=== PATIENT | male | born 1965 | race Caucasian/White ===

== ENCOUNTER → 2017-06-19 | Outpatient (CLI) | payer BC ==
[~2017-06-19] MED LIST: AMLO-110 PO; ATEN-175 PO; ATOR10TA82 PO; FLUT0.15 INTRAD; HYDR-5688 PO; IBUP-1050 PO; LISI-788 PO; LORA10TA51 PO; OMEG10007 PO
[2017-06-19 15:34] LABS: BASO % 0.6 %; BASO ABS # 0.04 K/uL (0-0.2); EOS % 4.7 %; EOS ABS # 0.33 K/uL (0-0.5); HEMATOCRIT 43.7 % (42-52); HEMOGLOBIN 15.5 g/dL (14.0-18.0); IG# 0.03 K/uL (0.00-0.02); LYMPH % 20.3 %; LYMPH ABS # 1.44 K/uL (1.2-3.4); MEAN CELL VOLUME 88.6 fL (80-100); MEAN CORPUSCULAR HEMOGLOBIN 31.4 pg (25-34); MEAN CORPUSCULAR HGB CONC 35.5 g/dl (32-36); MEAN PLATELET VOLUME 11.2 fL (7.4-10.4); MONO % 12.4 %; MONO ABS # 0.88 K/uL (0.11-0.59); NEUT % 61.6 %; NEUT ABS # 4.37 K/uL (1.4-6.5); PLATELET COUNT 180 K/uL (130-400); RED CELL DISTRIBUTION WIDTH CV 12.7 % (11.5-14.5); RED CELL DISTRIBUTION WIDTH SD 40.7 fL (36.4-46.3); WHITE BLOOD COUNT 7.09 K/uL (4.8-10.8)
== END | disposition home or self-care (01) ==
LOC: C.LAB 14:08
PROVIDERS: ATTEND Physician Assistant
DX: M17.11 Unilateral primary osteoarthritis, right knee (principal)

== ENCOUNTER 2017-06-29 04:49 | Inpatient (IN) | payer BC ==
--- NOTE | 2017-06-26 11:12 | DIAGNOSTIC IMAGING REPORT ---
CHEST 2 VIEWS ROUTINE CLINICAL HISTORY: PRE OP TESTING preoperative COMPARISON STUDY: No previous studies for comparison. FINDINGS: The bones soft tissues and hemidiaphragms are normal. The cardiomediastinal silhouette is normal. The lungs are clear. The pulmonary vasculature is normal. Small calcified granuloma of the substernal region. IMPRESSION: Negative chest. The above report was generated using voice recognition software. It may contain grammatical, syntax or spelling errors. Electronically signed by: Dada Hoang M.D. 06/26/2017 11:11 AM Dictated Date/Time: 06/26/2017 11:10 AM
[2017-06-26 12:57] LABS: HEMOGLOBIN A1C 5.1 % (4.5-5.6)
[2017-06-26 14:08] LABS: ALBUMIN 4.4 gm/dl (3.4-5.0); BLOOD UREA NITROGEN 21 mg/dl (7-18); CALCIUM 9.3 mg/dl (8.5-10.1); CARBON DIOXIDE 24 mmol/L (21-32); CREATININE 0.94 mg/dl (0.60-1.40); GLUCOSE 98 mg/dl (70-99); POTASSIUM 3.8 mmol/L (3.5-5.1); SODIUM 136 mmol/L (136-145)
[2017-06-27 11:52] VITALS: Ht 182.9 cm; Wt 118.2 kg
--- NOTE | 2017-06-28 21:41 | HISTORY & PHYSICAL EXAMINATION ---
DATE OF ADMISSION: CHIEF COMPLAINT: Chronic right knee pain. HISTORY OF PRESENT ILLNESS: This is a 52-year-old male patient of Dr. Malik'ruby complaining of chronic right knee pain, longstanding, now progressively getting worse. The patient has been diagnosed with end-stage osteoarthritis per clinical and radiographic exams. Patient has failed conservative treatment including anti-inflammatories, narcotics, intra-articular injections, and the use of a walker. Patient has increased pain with weightbearing activities and his pain does interfere with his activities of daily living. PAST MEDICAL HISTORY: Hypertension; hypercholesterolemia; history of palpitations, unspecified; osteoarthritis; sciatica; obesity. SOCIAL HISTORY: Lifelong smoker, quit in 2013. He is a 14 drink per week drinker. FAMILY HISTORY: Noncontributory. REVIEW OF SYSTEMS: Chronic right knee pain, otherwise denies any shortness of breath, chest pain, nausea, vomiting, or any other joint complaints. PAST SURGICAL HISTORY: Back surgery, bilateral knee surgeries, nasal surgery, hernia surgery, and bilateral carpal tunnel surgeries. MEDICATIONS: 1. Lisinopril 20 mg/hydrochlorothiazide 25 mg daily. 2. Atenolol 100 mg daily. 3. Atorvastatin 10 mg daily. 4. Amlodipine powder daily. 5. Loratadine 10 mg daily. 6. [place] as needed. ALLERGIES: INCLUDE PENICILLIN. PHYSICAL EXAMINATION: GENERAL: Well-developed, well-nourished 52-year-old male in no acute distress. He is alert and oriented x3 and pleasant. HEENT: He is normocephalic, atraumatic. Extraocular motions are intact. Pupils are equal and reactive to light. HEART: Regular rate and rhythm, no murmurs are appreciated. LUNGS: Clear. ABDOMEN: Soft and nontender. Bowel sounds are present. EXTREMITIES: Right knee reveals a varus deformity. He has a limited range of motion of 0-125 degrees. Patient has medial joint line tenderness. He has 5/5 strength. NEUROLOGICAL: Neurovascularly he is intact in his right lower extremity. DIAGNOSES: Right knee end-stage osteoarthritis; hypertension; hypercholesterolemia; history of palpitations, unspecified; osteoarthritis; sciatica; obesity. PLAN: Patient was advised of his diagnosis. Indications, risks, benefits, postop course have all been reviewed. Patient wished to proceed with a right total knee arthroplasty. Necessary consent forms, preoperative testing, and clearances will be obtained.
[~2017-06-29] VITALS: Ht 182.9 cm; Wt 118.2 kg
[2017-06-29] VITALS (10 sets, daily range): BP systolic 132–149; BP diastolic 72–95; PULSE 60–77; TEMP 36.7–37.2; O2SAT 94–97
[2017-06-29] MEDS ORDERED: GABAPENTIN 900 MG PO SCH (06:00)
[2017-06-29] MEDS ORDERED: METOCLOPRAMIDE HCL 10 MG TAB PO SCH (06:00)
[2017-06-29] MEDS ORDERED: CeleBREX 200 MG CAP PO SCH (06:00)
[2017-06-29] MEDS ORDERED: FAMOTIDINE 20 MG TAB PO SCH (06:00)
[2017-06-29] MEDS ORDERED: VANCOMYCIN IV 1,750 MG in SODIUM CHLORIDE 0.9% 500ML 500 ML IV SCH ×2 (06:00→18:00)
[2017-06-29] MEDS ORDERED: ROPIVACAINE 5MG/ML 30 ML 150 MG, BUPIVACAINE 0.5% MPF INJ 30 ML, EpINEphrine HCL INJ 0.... INFIL SCH ×8 (06:00)
[2017-06-29] MEDS ORDERED: ACETAMINOPHEN 500 MG TAB PO SCH (06:00)
[2017-06-29] MEDS ORDERED: DEXAMETHASONE 4 MG TAB PO SCH (06:00)
[2017-06-29] MEDS ORDERED: VANCOMYCIN 1GM ED/ASU OMNICELL 270 ML IV SCH (06:00)
[2017-06-29] MEDS ORDERED: LACTATED RINGER'S 1000ML 500 ML IV SCH (06:00)
[2017-06-29] MEDS ORDERED: BUPIVACAINE 0.5 % 5 MG/1 ML PF 10ML VIAL ONE (06:25)
[2017-06-29] MEDS ORDERED: ROPIVACAINE 0.5% 5 MG/ML 30 ML VIAL ONE (06:26)
[2017-06-29] MEDS ORDERED: PROPOFOL IV EMULSION 10 MG/ML 20 ML VIAL IV ONE ×3 (06:31→09:12)
[2017-06-29] MEDS ORDERED: LIDOCAINE HCL 2% 2 ML VIAL (20MG/ML) ONE (06:31)
[2017-06-29] MEDS ORDERED: MIDAZOLAM HCL 1 MG/ML 2ML VIAL ONE ×3 (06:31→08:20)
[2017-06-29 06:32] LABS: HEMATOCRIT 42.6 % (42-52); HEMOGLOBIN 15.1 g/dL (14.0-18.0); MEAN CELL VOLUME 88.4 fL (80-100); MEAN CORPUSCULAR HEMOGLOBIN 31.3 pg (25-34); MEAN PLATELET VOLUME 10.5 fL (7.4-10.4); PLATELET COUNT 154 K/uL (130-400); RED CELL DISTRIBUTION WIDTH CV 12.6 % (11.5-14.5); RED CELL DISTRIBUTION WIDTH SD 40.2 fL (36.4-46.3); WHITE BLOOD COUNT 6.83 K/uL (4.8-10.8)
[2017-06-29 06:51] LABS: MEAN CORPUSCULAR HGB CONC 35.4 g/dl (32-36)
[2017-06-29] MEDS ORDERED: BACITRACIN 50000 UNIT VIAL ONE (06:51)
[2017-06-29] MEDS ORDERED: POVIDONE-IODINE OP SOLN 30 ML BTL ONE (06:51)
[2017-06-29] MEDS ORDERED: ORTHO JOINT ANESTHETIC ONE (06:51)
[2017-06-29] MEDS: TRANEXAMIC ACID INJ 1,000 MG x 2 Bags IV SCH ×4 (07:03→11:24)
--- NOTE | 2017-06-29 07:10 | History & Physical Bridge Note ---
H&P Re-Evaluation Bridge Note: I have examined the patient, reviewed the History & Physical and in the interval since the performance of the History & Physical I have noted the following changes of clinical significance: No changes noted
[2017-06-29] MEDS ORDERED: FENTANYL CITRATE INJ 50 MCG/1 ML 2 ML VIAL ONE (07:12)
[2017-06-29] MEDS ORDERED: HYDROmorphone INJ 0.5 MG/0.5 ML SYR IV PRN (07:45)
[2017-06-29] MEDS ORDERED: ATROPINE SULFATE 0.1 MG/ML 5ML SYR IV PRN (07:45)
[2017-06-29] MEDS ORDERED: ONDANSETRON INJ 2 MG/ML 2 ML VIAL IV PRN ×2 (07:45→10:00)
[2017-06-29] MEDS ORDERED: PHENYLEPHRINE 100MCG/ML 5ML SYR IV PRN (07:45)
[2017-06-29] MEDS ORDERED: EpHEDrine SULFATE INJ 50 MG/ML AMP IV PRN (07:45)
--- NOTE | 2017-06-29 09:57 | [facility] Post Operative Brief Note ---
Immediate Operative Summary Operative Date Jun 29, 2017. Pre-Operative Diagnosis Right Knee End-Stage Osteoarthritis Post-Operative Diagnosis Right Knee End-Stage Osteoarthritis,bipartite patella Procedure(s) Performed Right Total Knee Arthroplasty with Excision Bipartite Patella and lateral release Surgeon Dr. Malik Candle Extrusion Machine Operator Surgeon(s) DORITA Pemberton Estimated Blood Loss 10 ml Findings Consistent with Post-Op Diagnosis Specimens A. Right Knee Bone and Tissue Drains 2 hemovac Anesthesia Type MAC Spinal Regional Complication(s) none Disposition Disposition: Recovery Room / PACU
[2017-06-29] MEDS ORDERED: VANCOMYCIN CONSULT ACTIVE PRN (10:00)
[2017-06-29] MEDS ORDERED: MoRPHine SULFATE 2 MG/ML CARP IV PRN (10:00)
[2017-06-29] MEDS ORDERED: ZOLPIDEM TARTRATE 5 MG TAB PO PRN (10:00)
[2017-06-29] MEDS ORDERED: SOD PHOSPHATE/SOD BIPHOSPHATE ENEMA 132 ML BTL PR PRN (10:00)
[2017-06-29] MEDS ORDERED: MAGNESIUM HYDROXIDE SUSP 30 ML UDC PO PRN (10:00)
[2017-06-29] MEDS ORDERED: METOCLOPRAMIDE HCL INJ 5 MG/ML 2 ML VIAL IV PRN (10:00)
[2017-06-29] MEDS ORDERED: BISACODYL 10 MG SUPP PR PRN (10:00)
--- NOTE | 2017-06-29 10:17 | [facility] Operative Report ---
Operative Report Operative Date Jun 29, 2017. Pre-Operative Diagnosis Right Knee End-Stage Osteoarthritis Post-Operative Diagnosis Same, bipartite patella Procedure(s) Performed Right total knee replacement excision bipartite patella with lateral release Surgeon Dr. Malik Emergency Vehicle Operations Instructor Surgeon(s) DORITA Pemberton Estimated Blood Loss 10 ml Findings Severe tricompartmental osteoarthritis varus knee medial subluxation bone loss medial compartment chronic intra-cruciate ligament tear bipartite patella Specimens A. Right Knee Bone and Tissue Drains 2 hemovac Anesthesia Spinal regional block sedation orthomix Complication(s) None Disposition Recovery Room / PACU Indications 52-year-old male extensive conservative management failed steroid and Viscosupplementation injections and bracing Description of Procedure The patient was taken to the operating room and anesthetized under regional block and spinal. Patient was placed supine on the the operating table. A pneumatic tourniquet was placed about the right upper thigh. The knee exam demonstrated subluxation femur on tibia no pseudo-laxity, some laxity of the LCL , positive Tin exam, [id number] crepitation, 0-125 range of motion. The involved leg was elevated exsanguinated with Esmarch bandage and the pneumatic tourniquet was raised to 325 millimeters mercury. A longitudinal incision was made across the anterior knee. Skin flaps were elevated. An incision was made into the medial retinaculum and extended up into the mid third of the quadriceps tendon and extended down to the tibial tubercle. Intra-articular findings demonstrated severe tricompartmental osteoarthritis with bone loss in the medial femoral condyle and tibia, varus knee, absent ACL. The knee was exposed by excising the posterior cruciate ligament and menisci. The infrapatellar fat pad was resected. The fat pad over the anterior femur at the upper aspect of the articular surface was resected for placement of the component in that area. A subperiosteal peel lateral release was performed around the patella. It was noted that patient had a bipartite patella. The [employer] journey 2.0 total knee arthroplasty system was utilized for the procedure. The drill hole for the intramedullary cele was made and cele was placed and the distal femoral cutting guide was pinned in position. The distal femoral cut was made. I had to take +2 more off to make appropriate resection. The femur was sized for a size 8 component. The drill holes were placed in 3 of external rotation to match epicondylar axis. The size 8, 5 in 1 cutting block was placed. The anterior posterior and chamfer cuts were made. The knee was extended and a free hand cut technique was performed to the patella. We encountered the bipartite patella which was shelled out from the quadriceps tendon subperiosteally. The patella with was measured and the width was reproduced using a 41 mm patella component. 3 drill holes are made for the patella component pegs. The tibia was then subluxed. The external tibial cutting guide was pinned in position and the proximal tibial cut was made with the oscillating saw. The size 8 tibial trial was externally rotated in line with the tibial tubercle and pinned in position. The punch for the stem was used. The femoral trial was inserted and centered the notch cutting devices were used and the collet was placed. Tibial trials were used for the insert. I had to balance the knee using a lamina recessing machine operator pie crusting the MCL and also doing posterior medial release off the tibia. The size 13 trial gave balanced ligaments through full range of motion. Patella tracking was assessed with range of motion. The patella tracked slightly laterally with some liftoff still so a formal lateral release was performed and the patella tracks centrally. The trials were removed. The Orthomix anesthetic cocktail was injected per protocol. The cut bone surfaces and soft tissue were copiously irrigated with antibiotic solution with bacitracin. The final components were cemented with Simplex cement. The final components were 8 Oxinium posterior stabilized Mo[employer]hew 2.0 femoral component, 8 primary tibial baseplate, high flex 13 mm posterior stabilized polyethylene insert for tibia, 41 mm dome patella. While the cement cured the Betadine soak was used per protocol. When the cement cured the knee was copiously irrigated with pulsatile lavage antibiotic solution with bacitracin. 2 drains were brought out laterally connected to Hemovac. The quadriceps tendon and medial retinaculum were closed with interrupted [id number] #1 Vicryl sutures. The knee was taken through full range of motion and repair was secure. The subcutaneous tissues were closed with 2-0 Vicryl sutures. The skin was closed with avril. A Silverlon sterile dressing was applied. The tourniquet was let down and the patient had good capillary refill to the extremity. The patient tolerated the procedure well. My physician dental chairside assistant Dada KEVIN assisted in the procedure including prepping draping leg positioning soft tissue retraction instrument management and assisted in the closure ,dressings application and will participate in postoperative care the patient. I attest to the content of the Intraoperative Record and any orders documented therein. Any exceptions are noted below.
--- NOTE | 2017-06-29 10:21 | DIAGNOSTIC IMAGING REPORT ---
R KNEE 1 OR 2 VIEWS ROUTINE CLINICAL HISTORY: Osteoarthritis. Postoperative study. COMPARISON: None. DISCUSSION: There are postsurgical changes of a total right knee arthroplasty and patellar resurfacing. The femoral and tibial components appear well seated. Overlying skin avril and surgical drains are evident. There is air within soft tissues consistent with recent surgery. IMPRESSION: Postsurgical changes of a total right knee arthroplasty. Electronically signed by: Jessee Medrano M.D. 06/29/2017 10:20 AM Dictated Date/Time: 06/29/2017 10:19 AM
--- NOTE | 2017-06-29 10:27 | Anesthesiology Progress Note ---
Anesthesia Post Op Note Date & Time Jun 29, 2017 at 10:27 Vital Signs Pain Intensity: 0 Vital Signs Past 12 Hours Date Time Temp Pulse Resp B/P (MAP) Pulse Ox O2 Delivery O2 Flow Rate FiO2 06/29/17 10:15 70 14 106/79 96 Nasal Cannula 2 06/29/17 10:05 67 18 110/71 93 Nasal Cannula 2 06/29/17 09:59 36.7 68 16 104/63 97 Nasal Cannula 2 06/29/17 06:10 37.2 63 16 149/91 95 Room Air Notes Mental Status: alert / awake / arousable, participated in evaluation Pt Amnestic to Procedure: Yes Nausea / Vomiting: adequately controlled Pain: adequately controlled Airway Patency, RR, SpO2: stable & adequate BP & HR: stable & adequate Hydration State: stable & adequate Anesthetic Complications: no major complications apparent
[2017-06-29] MEDS ORDERED: MoRPHine SULFATE 4 MG/ML 1 ML CARP\\VIAL IV PRN (11:15)
[2017-06-29] MEDS: D5W AND 1/2NSS + 20MEQ KCL 1,000 ML IV SCH ×2 (11:52→23:34)
[2017-06-29] MEDS ORDERED: GABAPENTIN 600 MG TAB PO SCH (12:15)
[2017-06-29] MEDS ORDERED: LORAZEPAM 2 MG/ML 1 ML VIAL IV PRN (12:15)
--- NOTE | 2017-06-29 12:20 | Medical Consult ---
Consultation Date of Consultation: Jun 29, 2017. Attending Physician: Bud Malik M.D. Reason for Consultation: Post-op medical management History of Present Illness Patient is a 52yo M with a PMH of HTN, HLD, OA, sciatic and heavy alcohol use who is POD #0 s/p R TKA by Dr. Malik. Patient is doing well post-operatively. States that knee pain is a 0/10. Denies any fever, chills, lightheadedness, headache, visual changes, sore throat, CP, SOB, abdominal pain, nausea, vomiting , dysuria or LE swelling. Follows with DARIANA Olmedo in [place] for primary care. States that he has been drinking heavily for the past 8 months due to stress from work. Endorses 3-5 mixed drinks daily. Experiences tremors and agitation if he does not drink by 4pm. Denies h/o seizures. Is interested in decreasing his intake overall. Past Medical/Surgical History Medical Problems: (1) HLD (hyperlipidemia) Status: Chronic (2) HTN (hypertension) Status: Chronic (3) Right knee DJD Status: Chronic (4) Sciatica Status: Chronic Surgical Problems: (1) H/O arthroscopic knee surgery Status: Resolved (2) H/O hernia repair Status: Resolved (3) H/O lumbar discectomy Status: Resolved (4) S/P carpal tunnel release Status: Resolved (5) S/P sinus surgery Status: Resolved Social History Problems: (1) Heavy alcohol use Status: Chronic Family History Diabetes mellitus Hypertension Social History Smoking Status: Former Smoker Alcohol Use: heavy Housing Status: lives alone Occupation Status: employed Allergies Coded Allergies: Penicillins (Verified Allergy, Unknown, A CHILD UNKNOWN, 06/29/17) Home Medications Reported Home Medications Medications Dose Route/Sig Max Daily Dose Days Date Category Dose Instructions Flonase Allergy Relief (Fluticasone Propionate (Nasal)) 50 Mcg/Act Spr 2 Sprays INTRAD QAM 06/27/17 Reported [place]-3 (Fish Oil) 1 Ea Cap 2 Cap PO QAM 06/27/17 Reported Advil (Ibuprofen) 200 Mg Tab 800 Mg PO TID PRN 06/27/17 Reported Sherrill 5MG/325MG (Acetaminophen/Hydrocodone Bitart) Tab 1 Tablet PO Q4-6H 06/27/17 Reported PRN PAIN Claritin (Loratadine) 10 Mg Tab 10 Mg PO QAM 06/27/17 Reported Norvasc (Amlodipine Besylate) 5 Mg Tab 5 Mg PO QAM 06/27/17 Reported Lipitor (Atorvastatin Calcium) 10 Mg Tab 10 Mg PO QAM 06/27/17 Reported Tenormin (Atenolol) 100 Mg Tab 100 Mg PO QAM 06/27/17 Reported Zestoretic 20MG/25MG (HCTZ/Lisinopril) Tab 1 Tab PO QAM 06/27/17 Reported Current Inpatient Medications Current Inpatient Medications Medications (Trade) Dose Ordered Sig/Eva Route Start Time Stop Time Status Last Admin Dose Admin Acetaminophen (Tylenol Tab) 1,000 mg PREOP PO 06/29/17 06:00 06/29/17 18:00 06/29/17 06:07 1,000 MG Celecoxib (CeleBREX CAP) 200 mg PREOP PO 06/29/17 06:00 06/29/17 18:00 06/29/17 06:08 200 MG Dexamethasone (Decadron Tab) 8 mg PREOP PO 06/29/17 06:00 06/29/17 18:00 06/29/17 06:08 8 MG Famotidine (Pepcid Tab) 20 mg PREOP PO 06/29/17 06:00 06/29/17 18:00 06/29/17 06:08 20 MG Gabapentin (Neurontin Cap) 900 mg PREOP PO 06/29/17 06:00 06/29/17 18:00 06/29/17 06:07 900 MG Metoclopramide HCl (Reglan Tab) 10 mg PREOP PO 06/29/17 06:00 06/29/17 18:00 06/29/17 06:07 10 MG Vancomycin HCl 1750 mg/Sodium Chloride 535 ml @ 200 mls/hr PREOP IV 06/29/17 06:00 06/30/17 05:59 06/29/17 05:56 200 MLS/HR Hydromorphone HCl (Dilaudid Inj) 0.5 mg Q5M PRN IV 06/29/17 07:45 06/29/17 12:45 Ondansetron HCl (Zofran Inj) 4 mg ONE PRN IV 06/29/17 07:45 06/29/17 12:45 Ephedrine Sulfate (EpHEDrine SULFATE INJ) 5 mg Q5M PRN IV 06/29/17 07:45 06/29/17 12:45 Atropine Sulfate (Atropine Sulfate 0.1mg/ml Inj) 0.5 mg Q1M PRN IV 06/29/17 07:45 06/29/17 12:45 Phenylephrine HCl (Shane-Synephrine 500MCG/5ML Syr) 100 mcg Q5M PRN IV 06/29/17 07:45 06/29/17 12:45 Amlodipine Besylate (Norvasc Tab) 5 mg QAM PO 06/30/17 09:00 07/30/17 08:59 Atenolol (Tenormin Tab) 100 mg QAM PO 06/30/17 09:00 07/30/17 08:59 Atorvastatin Calcium (Lipitor Tab) 10 mg QAM PO 06/30/17 09:00 07/30/17 08:59 Fluticasone Propionate (Flonase Nasal Graham) 2 sprays QAM NA 06/30/17 09:00 07/30/17 08:59 HCTZ/Lisinopril (Prinzide 20-25MG Tab) 1 tab QAM PO 06/30/17 09:00 07/30/17 08:59 Loratadine (Claritin Tab) 10 mg QAM PO 06/30/17 09:00 07/30/17 08:59 Potassium Chloride/Dextrose/ Sod Cl 1,000 ml @ 100 mls/hr Q10H IV 06/29/17 11:00 06/30/17 09:56 06/29/17 11:52 100 MLS/HR Vancomycin HCl 1750 mg/Sodium Chloride 535 ml @ 200 mls/hr TODAY@1800 IV 06/29/17 18:00 06/29/17 20:41 Celecoxib (CeleBREX CAP) 200 mg BID PO 06/29/17 21:00 07/29/17 20:59 Oxycodone HCl (Roxicodone Immediate Rel Tab) 1 TABLET FOR PAIN RATING... Q4H PRN PO 06/29/17 10:00 07/13/17 09:59 Acetaminophen (Tylenol Tab) 1,000 mg Q8H PO 06/29/17 14:00 07/29/17 13:59 Magnesium Hydroxide (Milk Of Magnesia Susp) 30 ml Q6H PRN PO 06/29/17 10:00 07/29/17 09:59 Bisacodyl (Dulcolax Supp) 10 mg DAILY PRN CO 06/29/17 10:00 07/29/17 09:59 Sodium Biphosphate/ Sodium Phosphate (Fleet Enema) 132 ml DAILY PRN CO 06/29/17 10:00 07/29/17 09:59 Docusate Sodium (coLACE CAP) 100 mg BID PO 06/29/17 21:00 07/29/17 20:59 Diphenhydramine HCl (Benadryl Cap) 25 mg Q8H PRN PO 06/29/17 10:00 07/29/17 09:59 Zolpidem Tartrate (Ambien Tab) 5 mg HSZ PRN PO 06/29/17 10:00 07/29/17 09:59 Multivitamins (Multivitamin Tab) 1 tab QAM PO 06/30/17 09:00 07/30/17 08:59 Ondansetron HCl (Zofran Inj) 4 mg Q6H PRN IV 06/29/17 10:00 07/29/17 09:59 Metoclopramide HCl (Reglan Inj) 10 mg Q6H PRN IV 06/29/17 10:00 07/29/17 09:59 Pantoprazole Sodium (Protonix Tab) 40 mg QAM PO 06/30/17 09:00 07/04/17 08:59 Rivaroxaban (Xarelto Tab) 10 mg Q24H PO 06/30/17 09:00 07/12/17 08:59 Morphine Sulfate (MoRPHine SULFATE INJ) 2 mg Q2H PRN IV 06/29/17 11:15 07/13/17 11:14 Morphine Sulfate (MoRPHine SULFATE INJ) 4 mg Q2H PRN IV 06/29/17 11:15 07/13/17 11:14 Thiamine HCl (Vitamin B-1 Tab) 100 mg Q24H STAT PO 06/29/17 12:04 06/29/17 12:05 UNV Gabapentin (Neurontin Tab) 1,200 mg SEE PROTOCOL TEXT PO 06/29/17 12:15 07/29/17 12:14 UNV Lorazepam (Ativan Inj) PRN Dosing -Active Protocol Q1H PRN IV 06/29/17 12:15 07/29/17 12:14 UNV Multivitamins (Multivitamin Tab) 1 tab QAM PO 06/30/17 09:00 07/30/17 08:59 UNV Multivitamins (Multivitamin Tab) 1 tab 1204 ONCE PO 06/29/17 12:04 06/29/17 12:05 UNV Folic Acid (Folvite Tab) 1 mg QAM PO 06/30/17 09:00 07/30/17 08:59 UNV Folic Acid (Folvite Tab) 1 mg 1204 ONCE PO 06/29/17 12:04 06/29/17 12:05 UNV Review of Systems Ten systems reviewed and negative except as noted in the HPI. Physical Exam Date Time Temp Pulse Resp B/P (MAP) Pulse Ox O2 Delivery O2 Flow Rate FiO2 06/29/17 11:41 63 16 136/83 (100) 97 Nasal Cannula 2.0 06/29/17 11:10 61 16 137/86 (103) 96 Nasal Cannula 2.0 06/29/17 10:45 96 Nasal Cannula 2.0 06/29/17 10:45 96 Nasal Cannula 2.0 06/29/17 10:45 36.7 18 145/72 (96) 96 Nasal Cannula 2.0 06/29/17 10:30 36.6 61 15 119/74 95 Nasal Cannula 2 06/29/17 10:25 73 17 119/55 97 Nasal Cannula 2 06/29/17 10:15 70 14 106/79 96 Nasal Cannula 2 06/29/17 10:05 67 18 110/71 93 Nasal Cannula 2 06/29/17 09:59 36.7 68 16 104/63 97 Nasal Cannula 2 06/29/17 06:10 37.2 63 16 149/91 95 Room Air General Appearance: WD/WN, no apparent distress Head: normocephalic, atraumatic Eyes: normal inspection, PERRL, sclerae normal ENT: normal ENT inspection, hearing grossly normal, pharynx normal (moist mucous membranes ) Neck: supple, thyroid normal, trachea midline Respiratory/Chest: chest non-tender, lungs clear, normal breath sounds, no respiratory distress, no accessory muscle use Cardiovascular: regular rate, rhythm, no murmur, normal peripheral pulses Abdomen/GI: non tender, soft, no organomegaly Back: normal inspection Extremities/Musculoskelatal: normal inspection, no calf tenderness, normal capillary refill, no pedal edema, + pertinent finding (R knee with dressing in place. Clean, dry, intact. Drain visualized. + SCDs ) Neurologic/Psych: no motor/sensory deficits, alert, normal mood/affect, oriented x 3 Skin: normal color, warm/dry, no rash Laboratory Results 06/29/17 06:05 06/26/17 10:42 Test 06/26/17 10:42 06/29/17 06:05 Prothrombin Time 10.0 SECONDS (9.0-12.0) Prothromb Time International Ratio 1.0 (0.9-1.1) Anion Gap 9.0 mmol/L (3-11) Estimated GFR () 107.6 Estimated GFR (Non- 92.8 BUN/Creatinine Ratio 22.6 (10-20) Estimated Average Glucose 100 mg/dl Hemoglobin A1c 5.1 % (4.5-5.6) Calcium Level 9.3 mg/dl (8.5-10.1) Albumin 4.4 gm/dl (3.4-5.0) Red Blood Count 4.82 M/uL (4.7-6.1) Mean Corpuscular Volume 88.4 fL (80-100) Mean Corpuscular Hemoglobin 31.3 pg (25-34) Mean Corpuscular Hemoglobin Concent 35.4 g/dl (32-36) RDW Standard Deviation 40.2 fL (36.4-46.3) RDW Coefficient of Variation 12.6 % (11.5-14.5) Mean Platelet Volume 10.5 fL (7.4-10.4) Date/Time Source Procedure Growth Status 06/26/17 10:42 Urine , Clean Catch Urine Culture - Final NO GROWTH - LESS THAN 1,000 COLONIES/ML Complete Last 24 Hours Test 06/29/17 06:05 White Blood Count 6.83 K/uL Red Blood Count 4.82 M/uL Hemoglobin 15.1 g/dL Hematocrit 42.6 % Mean Corpuscular Volume 88.4 fL Mean Corpuscular Hemoglobin 31.3 pg Mean Corpuscular Hemoglobin Concent 35.4 g/dl RDW Standard Deviation 40.2 fL RDW Coefficient of Variation 12.6 % Platelet Count 154 K/uL Mean Platelet Volume 10.5 fL Assessment & Plan Patient is a 52yo M with a PMH of HTN, HLD, Right knee DJD and heavy alcohol use who is POD #0 s/p R TKA by Dr. Malik. Right Knee DJD s/p R TKA: -POD#[address] Malik -Pt is doing well post-operatively -Per ortho for pain control, wound care, anticoagulation and activities -Monitor H&H, continue incentive spirometry, PT/OT when appropriate HTN: -Normotensive -Took amlodipine, atenolol pre-operatively -Cont lisinopril-hctz tomorrow HLD: -Cont statin Heavy alcohol use: -Endorses 3-5 mixed drinks daily -Withdrawal protocol with gabapentin and ativan -Multivitamin, thiamine and folic acid -Monitor DVT Ppx: Per ortho PCP: DARIANA Olmedo in [place] Patient seen in collaboration with Dr. Camacho. Please see addendum. ADDENDUM: I have seen and examined the patient and agree with the note as stated above. Of note the patient is not endorsing any withdrawal symptoms at this time. He remains on the gabapentin protocol as well as the thiamine folic acid and multivitamin. DO Doug
[2017-06-29] MEDS ORDERED: MULTIVITAMIN TAB PO ONE (12:35)
[2017-06-29] MEDS ORDERED: LORAZEPAM INJ 2 MG in SYRINGE 1 ML IV PRN (13:00)
[2017-06-29] MEDS ORDERED: LORAZEPAM INJ 1 MG in SYRINGE 0.5 ML IV PRN (13:00)
[2017-06-29] MEDS ORDERED: LORAZEPAM INJ 3 MG in SYRINGE 1.5 ML IV PRN (13:15)
[2017-06-29] MEDS ORDERED: GLUCTAB7 PO (13:39)
[2017-06-29] MEDS ORDERED: GABAPENTIN 1200MG LOADING DOSE PO SCH (14:00)
[2017-06-29] MEDS: OXYCODONE HCL IR 5 MG TAB (IMMEDIATE RELEASE) PO PRN ×2 (14:11→19:04)
[2017-06-29] MEDS: THIAMINE HCL 100 MG TAB PO SCH (14:13)
[2017-06-29] MEDS: ACETAMINOPHEN 500 MG TAB PO SCH ×2 (14:13→21:55)
[2017-06-29] MEDS: MoRPHine SULFATE 2 MG/ML CARP IV PRN ×2 (15:55→23:33)
[2017-06-29] MEDS: GABAPENTIN 600MG Q6H DOSE PO SCH (19:39)
[2017-06-29] MEDS ORDERED: THIAMINE HCL 100 MG/ML 2 ML VIAL IV SCH (20:15)
[2017-06-29] MEDS: DOCUSATE SODIUM 100 MG CAP PO SCH (20:23)
[2017-06-29] MEDS: CeleBREX 200 MG CAP PO SCH (20:24)
[2017-06-29] MEDS ORDERED: NURSING VERBAL MED ORDER ONE (20:30)
[2017-06-30 03:18] VITALS: BP 144/80; PULSE 61; TEMP 36.6; O2SAT 96
[2017-06-30] MEDS: OXYCODONE HCL IR 5 MG TAB (IMMEDIATE RELEASE) PO PRN ×5 (03:22→21:42)
[2017-06-30] MEDS: MoRPHine SULFATE 2 MG/ML CARP IV PRN ×5 (04:55→23:43)
[2017-06-30] MEDS: GABAPENTIN 600MG Q6H DOSE PO SCH (06:10)
[2017-06-30] MEDS: ACETAMINOPHEN 500 MG TAB PO SCH ×3 (06:11→21:41)
[2017-06-30 06:58] LABS: HEMATOCRIT 33.9 % (42-52); HEMOGLOBIN 12.1 g/dL (14.0-18.0); MEAN CELL VOLUME 88.1 fL (80-100); MEAN CORPUSCULAR HEMOGLOBIN 31.4 pg (25-34); MEAN CORPUSCULAR HGB CONC 35.7 g/dl (32-36); MEAN PLATELET VOLUME 10.8 fL (7.4-10.4); PLATELET COUNT 147 K/uL (130-400); RED CELL DISTRIBUTION WIDTH CV 12.5 % (11.5-14.5); WHITE BLOOD COUNT 12.45 K/uL (4.8-10.8)
[2017-06-30 07:04] LABS: CALCIUM 8.5 mg/dl (8.5-10.1); CREATININE 0.74 mg/dl (0.60-1.40)
[2017-06-30 07:36] VITALS: BP 126/78; PULSE 63; TEMP 36.8; O2SAT 97
[2017-06-30] MEDS: CeleBREX 200 MG CAP PO SCH ×2 (08:22→21:39)
[2017-06-30] MEDS: FLUTICASONE PROPIONATE NA SPR 16 GM BTL SCH (08:22)
[2017-06-30] MEDS: LORATADINE 10 MG TAB PO SCH (08:23)
[2017-06-30] MEDS: DOCUSATE SODIUM 100 MG CAP PO SCH ×2 (08:23→21:40)
[2017-06-30] MEDS: ATORVASTATIN 10 MG TAB PO SCH (08:24)
[2017-06-30] MEDS: MULTIVITAMIN TAB PO SCH ×2 (08:25)
[2017-06-30] MEDS: AMLODIPINE BESYLATE 5 MG TAB PO SCH (08:25)
[2017-06-30] MEDS: LISINOPRIL/HCTZ 20/25MG TAB PO SCH (08:26)
[2017-06-30] MEDS: PANTOprazole SOD 40 MG TAB PO SCH (08:26)
[2017-06-30] MEDS: THIAMINE HCL 100 MG TAB PO SCH (08:27)
[2017-06-30] MEDS: RIVAROXABAN 10 MG TAB PO SCH (08:28)
--- NOTE | 2017-06-30 08:52 | Orthopedic Progress Note ---
Orthopedic Progress Note Date of Service Jun 30, 2017. Subjective Post OP Day: 1 Reports: feeling well, Denies: chest pain, SOB, nausea / vomiting, light headedness, calf pain Additional Notes: Pt states that his HV tubing had pulled out during the early AM. It no longer is holding suction. Mild numbness over the dorsum of the right foot. Pain controlled fairly well. Objective calves soft nontender, N/V intact, dressing C/D/I, A&O x3, toes mobile Mild numbness in the dorsum of the right foot. Has good DF/PF of the ankle. Date Time Temp Pulse Resp B/P (MAP) Pulse Ox O2 Delivery O2 Flow Rate FiO2 06/30/17 08:07 Room Air 06/30/17 07:36 36.8 63 18 126/78 (94) 97 Room Air 06/30/17 03:18 36.6 61 18 144/80 (101) 96 Room Air 06/29/17 23:40 Room Air 06/29/17 23:03 36.9 60 16 132/79 (96) 95 Room Air 06/29/17 20:29 36.8 77 14 137/95 (109) 94 Room Air 06/29/17 15:50 36.8 62 17 134/76 (95) 95 Room Air 06/29/17 15:30 97 Nasal Cannula 2.0 06/29/17 13:43 63 16 149/90 (109) 97 Nasal Cannula 2.0 06/29/17 12:43 70 16 149/88 (108) 97 Nasal Cannula 2.0 06/29/17 11:41 63 16 136/83 (100) 97 Nasal Cannula 2.0 06/29/17 11:10 61 16 137/86 (103) 96 Nasal Cannula 2.0 06/29/17 10:45 96 Nasal Cannula 2.0 06/29/17 10:45 96 Nasal Cannula 2.0 06/29/17 10:45 36.7 18 145/72 (96) 96 Nasal Cannula 2.0 06/29/17 10:30 36.6 61 15 119/74 95 Nasal Cannula 2 06/29/17 10:25 73 17 119/55 97 Nasal Cannula 2 06/29/17 10:15 70 14 106/79 96 Nasal Cannula 2 06/29/17 10:05 67 18 110/71 93 Nasal Cannula 2 06/29/17 09:59 36.7 68 16 104/63 97 Nasal Cannula 2 Laboratory Results 24 Hours: Test 06/30/17 05:53 Hematocrit 33.9 % Hemoglobin 12.1 g/dL Assessment & Plan Assessment: POD 1 s/p Right TKA Plan: PT/OT Numbness likely residual from intra op injection. Follow for now. Pt lives alone and is trying to decide on whether to have home health services vs Rehab. Will see how he does with PT/OT Inhouse Planning Pain Management: Celebrex, Morphine, PO Tylenol, Oxy IR DVT Prophylaxis: TEDs, SCDs, Xarelto Discharge Planning Discharge Planning: uncertain
[2017-06-30] MEDS ORDERED: THIAMINE HCL 100 MG TAB PO SCH (09:00)
[2017-06-30] MEDS: GABAPENTIN 600MG Q8H DOSE PO SCH ×2 (13:03→21:40)
[2017-06-30 16:16] VITALS: BP 113/70; PULSE 66; TEMP 37.1; O2SAT 98
--- NOTE | 2017-06-30 18:21 | Progress Note ---
Medicine Progress Note Date & Time of Visit: Jun 30, 2017 at 18:17. Subjective seen resting in bed, not in distress having right knee pain no chest pain, dyspnea, palpitations, dizziness no other symptoms Objective Last 8 Hrs Date Time Temp Pulse Resp B/P (MAP) Pulse Ox O2 Delivery O2 Flow Rate FiO2 06/30/17 16:24 Room Air 06/30/17 16:16 37.1 66 17 113/70 (84) 98 Room Air Physical Exam: General- oriented x 3, not in distress, speaks in sentences with no effort Head- atraumatic Eyes- PERRL, EOMI, anicteric ENT- oropharynx clear Neck- supple, no JVD, no adenopathy, no thyromegaly; carotids +2/2 Lungs- clear to auscultation bilaterally Heart- regular rhythm; no murmur, normal rate Abdomen- normal bowel sounds, soft, nontender, non distended Extremities- no pretibial edema, no calf tenderness; peripheral pulses intact right knee: dressing in place Neuro- alert, oriented x 3; no gross focal deficits Skin- warm & dry Laboratory Results: Last 24 Hours Test 06/30/17 05:53 White Blood Count 12.45 K/uL Red Blood Count 3.85 M/uL Hemoglobin 12.1 g/dL Hematocrit 33.9 % Mean Corpuscular Volume 88.1 fL Mean Corpuscular Hemoglobin 31.4 pg Mean Corpuscular Hemoglobin Concent 35.7 g/dl RDW Standard Deviation 40.0 fL RDW Coefficient of Variation 12.5 % Platelet Count 147 K/uL Mean Platelet Volume 10.8 fL Sodium Level 137 mmol/L Potassium Level 4.0 mmol/L Chloride Level 105 mmol/L Carbon Dioxide Level 24 mmol/L Anion Gap 8.0 mmol/L Blood Urea Nitrogen 16 mg/dl Creatinine 0.74 mg/dl Est Creatinine Clear Calc Drug Dose 155.0 ml/min Estimated GFR () 122.9 Estimated GFR (Non- 106.1 BUN/Creatinine Ratio 21.9 Random Glucose 137 mg/dl Calcium Level 8.5 mg/dl Assessment & Plan Patient is a 52yo M with a PMH of HTN, HLD, Right knee DJD and heavy alcohol use who is POD #0 s/p R TKA by Dr. Malik. Right Knee DJD s/p R TKA: -POD#[address] Malik stable medically overall continue pain management HTN: stable continue usual lisinopril, amlodipine, atenolol HLD: -Cont statin Heavy alcohol use: -Endorses 3-5 mixed drinks daily -Withdrawal protocol with gabapentin and ativan -Multivitamin, thiamine and folic acid - denies symptoms of alcohol withdrawal no signs of AW either continue to monitor Thank you for this consultation. We will follow the patient with you during their hospital stay. You can reach a member of the [facility] Hospitalist Team 02/10 via pager @ . Current Inpatient Medications: Current Inpatient Medications Medications (Trade) Dose Ordered Sig/Eva Route Start Time Stop Time Status Last Admin Dose Admin Amlodipine Besylate (Norvasc Tab) 5 mg QAM PO 06/30/17 09:00 07/30/17 08:59 06/30/17 08:25 5 MG Atenolol (Tenormin Tab) 100 mg QAM PO 06/30/17 09:00 07/30/17 08:59 06/30/17 08:27 100 MG Atorvastatin Calcium (Lipitor Tab) 10 mg QAM PO 06/30/17 09:00 07/30/17 08:59 06/30/17 08:24 10 MG Fluticasone Propionate (Flonase Nasal [place]) 2 sprays QAM NA 06/30/17 09:00 07/30/17 08:59 06/30/17 08:22 2 SPRAYS HCTZ/Lisinopril (Prinzide 20-25MG Tab) 1 tab QAM PO 06/30/17 09:00 07/30/17 08:59 06/30/17 08:26 1 TAB Loratadine (Claritin Tab) 10 mg QAM PO 06/30/17 09:00 07/30/17 08:59 06/30/17 08:23 10 MG Celecoxib (CeleBREX CAP) 200 mg BID PO 06/29/17 21:00 07/29/17 20:59 06/30/17 08:22 200 MG Oxycodone HCl (Roxicodone Immediate Rel Tab) 1 TABLET FOR PAIN RATING... Q4H PRN PO 06/29/17 10:00 07/13/17 09:59 06/30/17 17:03 10 MG Acetaminophen (Tylenol Tab) 1,000 mg Q8H PO 06/29/17 14:00 07/29/17 13:59 06/30/17 13:02 1,000 MG Magnesium Hydroxide (Milk Of Magnesia Susp) 30 ml Q6H PRN PO 06/29/17 10:00 07/29/17 09:59 Bisacodyl (Dulcolax Supp) 10 mg DAILY PRN [place] 06/29/17 10:00 07/29/17 09:59 Sodium Biphosphate/ Sodium Phosphate (Fleet Enema) 132 ml DAILY PRN [place] 06/29/17 10:00 07/29/17 09:59 Docusate Sodium (coLACE CAP) 100 mg BID PO 06/29/17 21:00 07/29/17 20:59 06/30/17 08:23 100 MG Diphenhydramine HCl (Benadryl Cap) 25 mg Q8H PRN PO 06/29/17 10:00 07/29/17 09:59 Zolpidem Tartrate (Ambien Tab) 5 mg HSZ PRN PO 06/29/17 10:00 07/29/17 09:59 Multivitamins (Multivitamin Tab) 1 tab QAM PO 06/30/17 09:00 07/30/17 08:59 06/30/17 08:25 1 TAB Ondansetron HCl (Zofran Inj) 4 mg Q6H PRN IV 06/29/17 10:00 07/29/17 09:59 Metoclopramide HCl (Reglan Inj) 10 mg Q6H PRN IV 06/29/17 10:00 07/29/17 09:59 Pantoprazole Sodium (Protonix Tab) 40 mg QAM PO 06/30/17 09:00 07/04/17 08:59 06/30/17 08:26 40 MG Rivaroxaban (Xarelto Tab) 10 mg Q24H PO 06/30/17 09:00 07/12/17 08:59 06/30/17 08:28 10 MG Morphine Sulfate (MoRPHine SULFATE INJ) 2 mg Q2H PRN IV 06/29/17 11:15 07/13/17 11:14 06/30/17 14:28 2 MG Morphine Sulfate (MoRPHine SULFATE INJ) 4 mg Q2H PRN IV 06/29/17 11:15 07/13/17 11:14 06/29/17 20:16 4 MG Thiamine HCl (Vitamin B-1 Tab) 100 mg DAILY PO 06/29/17 12:45 07/29/17 12:44 06/30/17 08:27 100 MG Multivitamins (Multivitamin Tab) 1 tab QAM PO 06/30/17 09:00 07/30/17 08:59 Folic Acid (Folvite Tab) 1 mg QAM PO 06/30/17 09:00 07/30/17 08:59 06/30/17 08:24 1 MG Gabapentin (Neurontin Tab) 600 mg Q8H PO 06/30/17 14:00 07/01/17 06:01 06/30/17 13:03 600 MG Gabapentin (Neurontin Tab) 600 mg Q12H PO 07/01/17 18:00 07/02/17 06:01 Gabapentin (Neurontin Tab) 600 mg Q24H PO 07/03/17 06:00 07/03/17 06:01 Lorazepam 1 mg/ Syringe 1 ml @ 1 mls/min Q1H PRN IV 06/29/17 13:00 07/29/17 12:59 Lorazepam 2 mg/ Syringe 2 ml @ 1 mls/min Q1H PRN IV 06/29/17 13:00 07/29/17 12:59 Lorazepam 3 mg/ Syringe 3 ml @ 1 mls/min Q1H PRN IV 06/29/17 13:15 07/29/17 13:14
[2017-06-30 21:42] VITALS: BP 120/67; PULSE 77; TEMP 37.3; O2SAT 94
[2017-06-30 22:53] VITALS: BP 105/56; PULSE 73; TEMP 37.3; O2SAT 97
[2017-07-01] MEDS: OXYCODONE HCL IR 5 MG TAB (IMMEDIATE RELEASE) PO PRN ×7 (01:45→23:23)
[2017-07-01 03:45] VITALS: BP 112/65; PULSE 60; TEMP 36.9; O2SAT 96
[2017-07-01] MEDS: GABAPENTIN 600MG Q8H DOSE PO SCH (05:52)
[2017-07-01] MEDS: ACETAMINOPHEN 500 MG TAB PO SCH ×3 (05:52→22:01)
[2017-07-01 06:26] LABS: HEMATOCRIT 31.4 % (42-52); HEMOGLOBIN 10.9 g/dL (14.0-18.0); MEAN CELL VOLUME 89.5 fL (80-100); MEAN CORPUSCULAR HEMOGLOBIN 31.1 pg (25-34); MEAN CORPUSCULAR HGB CONC 34.7 g/dl (32-36); MEAN PLATELET VOLUME 10.5 fL (7.4-10.4); PLATELET COUNT 114 K/uL (130-400); WHITE BLOOD COUNT 8.43 K/uL (4.8-10.8)
[2017-07-01 07:16] LABS: CALCIUM 8.9 mg/dl (8.5-10.1); CREATININE 0.88 mg/dl (0.60-1.40); POTASSIUM 3.8 mmol/L (3.5-5.1)
[2017-07-01] MEDS: MULTIVITAMIN TAB PO SCH ×2 (07:28→09:48)
--- NOTE | 2017-07-01 07:44 | Orthopedic Progress Note ---
Orthopedic Progress Note Date of Service Jul 01, 2017. Subjective Post OP Day: 2 Reports: feeling well, Denies: complaints Objective calves soft nontender, N/V intact, dressing C/D/I (Silverlon with minimal drainage), A&O x3, toes mobile Date Time Temp Pulse Resp B/P (MAP) Pulse Ox O2 Delivery O2 Flow Rate FiO2 07/01/17 03:45 36.9 60 16 112/65 (81) 96 Room Air 06/30/17 23:45 Room Air 06/30/17 22:53 37.3 73 20 105/56 (72) 97 Room Air 06/30/17 21:42 37.3 77 18 120/67 (84) 94 Room Air 06/30/17 16:24 Room Air 06/30/17 16:16 37.1 66 17 113/70 (84) 98 Room Air 06/30/17 08:07 Room Air Laboratory Results 24 Hours: Test 07/01/17 05:47 Hematocrit 31.4 % Hemoglobin 10.9 g/dL Assessment & Plan Assessment: POD 2 s/p Right TKA Plan: PT/OT Pt lives alone and plans are to try to get into [facility] or SNF on Sunday. Will await authorization approval Inhouse Planning Pain Management: Celebrex, Morphine, PO Tylenol, Oxy IR DVT Prophylaxis: TEDs, SCDs, Xarelto Discharge Planning Discharge Planning: uncertain
[2017-07-01 07:54] VITALS: BP 119/74; PULSE 68; TEMP 37.2; O2SAT 94
[2017-07-01] MEDS: MoRPHine SULFATE 2 MG/ML CARP IV PRN ×4 (08:09→22:02)
[2017-07-01] MEDS: FLUTICASONE PROPIONATE NA SPR 16 GM BTL SCH (09:45)
[2017-07-01] MEDS: CeleBREX 200 MG CAP PO SCH ×2 (09:46→20:58)
[2017-07-01] MEDS: LORATADINE 10 MG TAB PO SCH (09:47)
[2017-07-01] MEDS: DOCUSATE SODIUM 100 MG CAP PO SCH ×2 (09:47→20:57)
[2017-07-01] MEDS: ATORVASTATIN 10 MG TAB PO SCH (09:48)
[2017-07-01] MEDS: PANTOprazole SOD 40 MG TAB PO SCH (09:49)
[2017-07-01] MEDS: AMLODIPINE BESYLATE 5 MG TAB PO SCH (09:49)
[2017-07-01] MEDS: LISINOPRIL/HCTZ 20/25MG TAB PO SCH (09:49)
[2017-07-01] MEDS: RIVAROXABAN 10 MG TAB PO SCH (09:50)
[2017-07-01] MEDS: THIAMINE HCL 100 MG TAB PO SCH (09:50)
--- NOTE | 2017-07-01 14:47 | Progress Note ---
Medicine Progress Note Date & Time of Visit: Jul 01, 2017 at 14:45. Subjective seen resting in bed, watching tv, comfortable states he feels better today knee pain is better denies dizziness, chest pain, dyspnea, palpitations no other symptoms Objective Last 8 Hrs Date Time Temp Pulse Resp B/P (MAP) Pulse Ox O2 Delivery O2 Flow Rate FiO2 07/01/17 08:17 Room Air 07/01/17 07:54 37.2 68 17 119/74 (89) 94 Room Air Physical Exam: General- oriented x 3, not in distress, speaks in sentences with no effort Eyes- anicteric Neck- supple, no JVD Lungs- clear breath sounds bilaterally Heart- regular rhythm; no murmur, normal rate Abdomen- normal bowel sounds, soft, nontender Extremities- no pretibial edema, no calf tenderness; peripheral pulses intact right knee: dressing in place Neuro- alert, oriented x 3; no gross focal deficits Skin- warm & dry Laboratory Results: Last 24 Hours Test 07/01/17 05:47 White Blood Count 8.43 K/uL Red Blood Count 3.51 M/uL Hemoglobin 10.9 g/dL Hematocrit 31.4 % Mean Corpuscular Volume 89.5 fL Mean Corpuscular Hemoglobin 31.1 pg Mean Corpuscular Hemoglobin Concent 34.7 g/dl RDW Standard Deviation 42.0 fL RDW Coefficient of Variation 13.0 % Platelet Count 114 K/uL Mean Platelet Volume 10.5 fL Sodium Level 136 mmol/L Potassium Level 3.8 mmol/L Chloride Level 102 mmol/L Carbon Dioxide Level 28 mmol/L Anion Gap 6.0 mmol/L Blood Urea Nitrogen 14 mg/dl Creatinine 0.88 mg/dl Est Creatinine Clear Calc Drug Dose 130.3 ml/min Estimated GFR () 114.5 Estimated GFR (Non- 98.8 BUN/Creatinine Ratio 16.5 Random Glucose 109 mg/dl Calcium Level 8.9 mg/dl Assessment & Plan Patient is a 52yo M with a PMH of HTN, HLD, Right knee DJD and heavy alcohol use who is POD #0 s/p R TKA by Dr. Malik. Right Knee DJD s/p R TKA: -POD#[address] Malik remains stable medically continue pain management HTN: stable continue usual lisinopril, amlodipine, atenolol HLD: -Cont statin Heavy alcohol use: -Endorses 3-5 mixed drinks daily -Withdrawal protocol with gabapentin and ativan -Multivitamin, thiamine and folic acid - no signs and symptoms of alcohol withdrawal Thank you for this consultation. We will follow the patient with you during their hospital stay. You can reach a member of the [facility] Hospitalist Team 02/10 via pager @ . Current Inpatient Medications: Current Inpatient Medications Medications (Trade) Dose Ordered Sig/Eva Route Start Time Stop Time Status Last Admin Dose Admin Amlodipine Besylate (Norvasc Tab) 5 mg QAM PO 06/30/17 09:00 07/30/17 08:59 07/01/17 09:49 5 MG Atenolol (Tenormin Tab) 100 mg QAM PO 06/30/17 09:00 07/30/17 08:59 07/01/17 09:50 100 MG Atorvastatin Calcium (Lipitor Tab) 10 mg QAM PO 06/30/17 09:00 07/30/17 08:59 07/01/17 09:48 10 MG Fluticasone Propionate (Flonase Nasal [place]) 2 sprays QAM NA 06/30/17 09:00 07/30/17 08:59 07/01/17 09:45 2 SPRAYS HCTZ/Lisinopril (Prinzide 20-25MG Tab) 1 tab QAM PO 06/30/17 09:00 07/30/17 08:59 07/01/17 09:49 1 TAB Loratadine (Claritin Tab) 10 mg QAM PO 06/30/17 09:00 07/30/17 08:59 07/01/17 09:47 10 MG Celecoxib (CeleBREX CAP) 200 mg BID PO 06/29/17 21:00 07/29/17 20:59 07/01/17 09:46 200 MG Oxycodone HCl (Roxicodone Immediate Rel Tab) 1 TABLET FOR PAIN RATING... Q4H PRN PO 06/29/17 10:00 07/13/17 09:59 07/01/17 14:10 10 MG Acetaminophen (Tylenol Tab) 1,000 mg Q8H PO 06/29/17 14:00 07/29/17 13:59 07/01/17 14:09 1,000 MG Magnesium Hydroxide (Milk Of Magnesia Susp) 30 ml Q6H PRN PO 06/29/17 10:00 07/29/17 09:59 Bisacodyl (Dulcolax Supp) 10 mg DAILY PRN [place] 06/29/17 10:00 07/29/17 09:59 Sodium Biphosphate/ Sodium Phosphate (Fleet Enema) 132 ml DAILY PRN [place] 06/29/17 10:00 07/29/17 09:59 Docusate Sodium (coLACE CAP) 100 mg BID PO 06/29/17 21:00 07/29/17 20:59 07/01/17 09:47 100 MG Diphenhydramine HCl (Benadryl Cap) 25 mg Q8H PRN PO 06/29/17 10:00 07/29/17 09:59 Zolpidem Tartrate (Ambien Tab) 5 mg HSZ PRN PO 06/29/17 10:00 07/29/17 09:59 Multivitamins (Multivitamin Tab) 1 tab QAM PO 06/30/17 09:00 07/30/17 08:59 07/01/17 09:48 1 TAB Ondansetron HCl (Zofran Inj) 4 mg Q6H PRN IV 06/29/17 10:00 07/29/17 09:59 Metoclopramide HCl (Reglan Inj) 10 mg Q6H PRN IV 06/29/17 10:00 07/29/17 09:59 Pantoprazole Sodium (Protonix Tab) 40 mg QAM PO 06/30/17 09:00 07/04/17 08:59 07/01/17 09:49 40 MG Rivaroxaban (Xarelto Tab) 10 mg Q24H PO 06/30/17 09:00 07/12/17 08:59 07/01/17 09:50 10 MG Morphine Sulfate (MoRPHine SULFATE INJ) 2 mg Q2H PRN IV 06/29/17 11:15 07/13/17 11:14 07/01/17 11:45 2 MG Morphine Sulfate (MoRPHine SULFATE INJ) 4 mg Q2H PRN IV 06/29/17 11:15 07/13/17 11:14 06/29/17 20:16 4 MG Thiamine HCl (Vitamin B-1 Tab) 100 mg DAILY PO 06/29/17 12:45 07/29/17 12:44 07/01/17 09:50 100 MG Multivitamins (Multivitamin Tab) 1 tab QAM PO 06/30/17 09:00 07/30/17 08:59 Folic Acid (Folvite Tab) 1 mg QAM PO 06/30/17 09:00 07/30/17 08:59 07/01/17 09:48 1 MG Gabapentin (Neurontin Tab) 600 mg Q12H PO 07/01/17 18:00 07/02/17 06:01 Gabapentin (Neurontin Tab) 600 mg Q24H PO 07/03/17 06:00 07/03/17 06:01 Lorazepam 1 mg/ Syringe 1 ml @ 1 mls/min Q1H PRN IV 06/29/17 13:00 07/29/17 12:59 Lorazepam 2 mg/ Syringe 2 ml @ 1 mls/min Q1H PRN IV 06/29/17 13:00 07/29/17 12:59 Lorazepam 3 mg/ Syringe 3 ml @ 1 mls/min Q1H PRN IV 06/29/17 13:15 07/29/17 13:14
[2017-07-01 16:06] VITALS: BP 115/71; PULSE 70; TEMP 37; O2SAT 94
[2017-07-01] MEDS: GABAPENTIN 600MG Q12H DOSE PO SCH (18:07)
[2017-07-01 23:02] VITALS: BP 117/62; PULSE 76; TEMP 37.3; O2SAT 99
[2017-07-02] MEDS: GABAPENTIN 600MG Q12H DOSE PO SCH (05:24)
[2017-07-02] MEDS: ACETAMINOPHEN 500 MG TAB PO SCH ×2 (05:25→13:32)
[2017-07-02] MEDS: OXYCODONE HCL IR 5 MG TAB (IMMEDIATE RELEASE) PO PRN ×2 (05:25→11:07)
[2017-07-02 06:11] VITALS: BP 127/75; PULSE 76; TEMP 37.1; O2SAT 97
[2017-07-02 06:16] LABS: CREATININE 0.92 mg/dl (0.60-1.40)
[2017-07-02] MEDS: MULTIVITAMIN TAB PO SCH ×2 (07:17→07:19)
[2017-07-02] MEDS: FLUTICASONE PROPIONATE NA SPR 16 GM BTL SCH (07:17)
[2017-07-02] MEDS: AMLODIPINE BESYLATE 5 MG TAB PO SCH (07:18)
[2017-07-02] MEDS: CeleBREX 200 MG CAP PO SCH (07:18)
[2017-07-02] MEDS: RIVAROXABAN 10 MG TAB PO SCH (07:18)
[2017-07-02] MEDS: DOCUSATE SODIUM 100 MG CAP PO SCH (07:19)
[2017-07-02] MEDS: PANTOprazole SOD 40 MG TAB PO SCH (07:19)
[2017-07-02] MEDS: LORATADINE 10 MG TAB PO SCH (07:19)
[2017-07-02] MEDS: LISINOPRIL/HCTZ 20/25MG TAB PO SCH (07:19)
[2017-07-02] MEDS: ATORVASTATIN 10 MG TAB PO SCH (07:19)
[2017-07-02] MEDS: THIAMINE HCL 100 MG TAB PO SCH (07:19)
--- NOTE | 2017-07-02 07:42 | Orthopedic Progress Note ---
Orthopedic Progress Note Date of Service Jul 02, 2017. Subjective Post OP Day: 3 Reports: feeling well, complaints Objective calves soft nontender, N/V intact, dressing C/D/I (silverlon intact), A&O x3, toes mobile Date Time Temp Pulse Resp B/P (MAP) Pulse Ox O2 Delivery O2 Flow Rate FiO2 07/02/17 06:11 37.1 76 16 127/75 (92) 97 Room Air 07/01/17 23:20 Room Air 07/01/17 23:02 37.3 76 16 117/62 (80) 99 Room Air 07/01/17 16:30 Room Air 07/01/17 16:06 37.0 70 17 115/71 (86) 94 Room Air 07/01/17 08:17 Room Air 07/01/17 07:54 37.2 68 17 119/74 (89) 94 Room Air Assessment & Plan Assessment: POD 3 s/p Right TKA Plan: PT/OT Awaiting authorization for SNF/Rehab vs HH Inhouse Planning Pain Management: Celebrex, Morphine, PO Tylenol, Oxy IR DVT Prophylaxis: TEDs, SCDs, Xarelto Discharge Planning Discharge Planning: uncertain
[2017-07-02] MEDS: MoRPHine SULFATE 2 MG/ML CARP IV PRN ×2 (08:00→08:19)
[2017-07-02 12:09] VITALS: BP 127/75; PULSE 76; TEMP 37.1; O2SAT 97
[2017-07-02] MEDS ORDERED: RXC5 PO (12:14)
[2017-07-02] MEDS ORDERED: ACET-24 PO (12:14)
[2017-07-02] MEDS ORDERED: CLB200 PO (12:14)
[2017-07-02] MEDS ORDERED: XRL10 PO (12:14)
--- NOTE | 2017-07-02 12:19 | Discharge Instructions ---
Discharge Instructions Date of Service Jul 02, 2017. Admission Reason for Admission: Right Knee Osteoarthritis Discharge Discharge Diagnosis / Problem: Right Knee Djd Discharge Goals Goal(s): Decrease discomfort, Improve function, Increase independence Activity Recommendations Activity Limitations: per Instructions/Follow-up section Weightbearing Status: Right weightbearing (as tolerated) . Instructions / Follow-Up Instructions / Follow-Up ACTIVITY RECOMMENDATIONS: SELF CARE INSTRUCTIONS AFTER TOTAL KNEE REPLACEMENT A. You may need to continue a physical therapy program after discharge from the hospital. There are several options available to you. Your doctor will assist you in selecting the best one for you. 1. An out-patient facility 2 to 3 times a week for therapy or home therapy. 2. Continue working on all exercises taught to you in the hospital. Your goals should be to increase bending of your knee to 90 degrees and beyond and to fully straighten your knee. B. You may progress at your own pace from walking with a walker or crutches to a cane; then to no assistive devices. C. Make walking a part of your daily routine. Be up as much as comfortable with rest periods throughout the day. Rest with leg elevation is very important. Use the ice wrap frequently for the first 3-4 weeks. D. There are no restrictions on activities. You may ride in a car, shop, participate in machine carton marker and all social activities. E. Wear the long elastic stockings (ERICA hose) 20 hours a day for 2 weeks after surgery. They can be removed several times a day for laundering and for a bath. F. You may shower, no tub baths until cleared by your doctor. SPECIAL CARE INSTRUCTIONS: VERY IMPORTANT TO READ AND REVIEW A. There are a few signs you need to watch for after you are home. Call [facility] if you notice any of the followin. Increased severe knee pain. Some pain is expected especially when you exercise. 2. Increased swelling in your leg or knee; pain or swelling of the calf muscle in either lower leg. 3. Any fluid drainage from the incision. 4. Shortness of breath or chest pain. B. Please call [facility] at if you have any concerns or questions about your operation or recovery. The doctor or his nurse will return your call promptly. C. You must take antibiotics before dental work, bladder, bowel or other surgery. Your doctor will provide you with a permanent care to carry describing this precaution. IMPORTANT: * YOU WILL BE TAKING XARELTO. THIS IS YOUR BLOOD THINNER. YOU WILL TAKE IT FOR 30 DAYS OR YOUR DOCTOR PRESCRIBES. * CALL IF INCREASED PAIN, REDNESS, DRAINAGE OR FEVER GREATER THAT 101. * WEAR ERICA HOSE 20 HOURS PER DAY FOR 2 WEEKS. * Silverlon- This is a large adhesive bandage that contains silver ions. This helps your incision heal by fighting off bacteria and protecting it from the outside environment. You are permitted to shower with this dressing. This will remain on your incision for 7 days and then should be removed. Some visible blood or drainage through the dressing window is normal. If there is significant drainage or leaking noted before the 7 days notify your doctor's office immediately. Once removed, keep incision clean and dry. If there is any drainage or redness noted, please call your surgeon. . FOLLOW UP VISIT: If appointment is not already scheduled: Please call [facility] to make a follow-up appointment for 2 weeks after your surgery at . Current Hospital Diet Patient's current hospital diet: Regular Diet Discharge Diet Recommended Diet: Regular Diet Procedures Procedures Performed: Right Total Knee Arthroplasty with Excision Bipartite Patella and lateral release Pending Studies Studies pending at discharge: no Laboratory Results Hemoglobin A1c Test 06/26/17 10:42 Range/Units Estimated Average Glucose 100 mg/dl Hemoglobin A1c 5.1 4.5-5.6 % Medical Emergencies . Who to Call and When: Medical Emergencies: If at any time you feel your situation is an emergency, please call 911 immediately. . Non-Emergent Contact Non-Emergency issues call your: Surgeon Call Non-Emergent contact if: temperature is above 101.5, your pain is not controlled, your pain is worsening, wound has increased drainage, wound has increased redness . "Provider Documentation" section prepared by Edvin Quezada. . [place] Drug Monitoring Program Search Results: patient reviewed within database, no issues identified
[2017-07-03] MEDS ORDERED: GABAPENTIN 600MG X1 DOSE PO SCH (06:00)
== END 2017-07-02 14:00 | disposition home health service (06) | DRG 470 ==
LOC: C.ACU 04:49 → C.3E 06:55 → ENRESERV 10:14
PROVIDERS: ADMIT Orthopaedic Surgery Sports Medicine; ATTEND Orthopaedic Surgery Sports Medicine
PROC: 0SRT0J9 Replacement of Right Knee Joint, Femoral Surface with Synthetic Substitute, Cemented, Open Approach (ICD-10-PCS; principal; 2017-06-29 07:15)
DX: M17.11 Unilateral primary osteoarthritis, right knee (principal); I10 Essential (primary) hypertension; E78.00 Pure hypercholesterolemia, unspecified; F10.10 Alcohol abuse, uncomplicated; E66.9 Obesity, unspecified; Z87.891 Personal history of nicotine dependence; Z68.35 Body mass index [BMI] 35.0-35.9, adult